=== PATIENT | female | born 1985 | race Caucasian/White ===

== ENCOUNTER 2021-06-06 17:19 | Emergency (ER) | payer BC, OTHER ==
[2021-06-06] MEDS ORDERED: predniSONE 20 MG Tab PO ONE (18:09)
[2021-06-06] MEDS ORDERED: Ketorolac 60 MG/2 ML SDV IM ONE (18:13)
[2021-06-06] MEDS ORDERED: traMADol 50 MG Tab PO ONE (18:14)
--- NOTE | 2021-06-06 18:20 | EDM.PDOC ---
ED HPI GENERAL MEDICAL PROBLEM - General Chief Complaint: Upper Extremity Injury/Pain Stated Complaint: right shoulder pain Time Seen by Provider: 06/06/21 17:45 Source of Information: Reports: Patient History Limitations: Reports: No Limitations - History of Present Illness INITIAL COMMENTS - FREE TEXT/NARRATIVE: Patient was working at [employer] when she felt sharp pain/popping sensation in right shoulder. Now has pain both anterior and posterior shoulder. Also fingers are all a bit tingly but she has had that sensation before. No weakness of limb. Has not taken any medication for this. No other acute complaints. No history of injury to that shoulder in past. Patient denies chance of and just had negative test a few days ago when restarting con trol. right shoulder Pain Score (Numeric/FACES): 7 - Related Data Allergies Allergy/AdvReac Type Severity Reaction Status Date / Time No Known Allergies Allergy Verified 08/02/19 15:26 Home Meds: Home Meds Levonorgestrel/Ethin.estradiol [Aviane] 1 tab PO DAILY 03/26/19 [History] Loratadine [Claritin] 10 mg PO DAILY 06/06/21 [History] Past Medical History HEENT History: Reports: Impaired Vision Respiratory History: Reports: Other (See Below) Other Respiratory History: seasonal allergies Gastrointestinal History: Reports: Irritable Bowel Syndrome Neurological History: Reports: Migraines Psychiatric History: Reports: Anxiety, Depression Endocrine/Metabolic History: Reports: Obesity/BMI 30+ Social & Family History - Family History Family Medical History: No Pertinent Family History - Tobacco Use Tobacco Use Status *Q: Never Tobacco User Second Hand Smoke Exposure: No - Caffeine Use Caffeine Use: Reports: Coffee - Recreational Drug Use Recreational Drug Use: No Review of Systems - Review of Systems Review Of Systems: Comprehensive ROS is negative, except as noted in HPI. ED EXAM, GENERAL - Physical Exam Exam: See Below Exam Limited By: No Limitations General Appearance: Alert, WD/WN, Other (uncomfortable in appearance) Eye Exam: Bilateral Eye: EOMI, PERRL Ears: Hearing Grossly Normal Nose: No: Nasal Deformity, Nasal Swelling, Nasal Drainage Throat/Mouth: Normal Lips, Normal Voice, No Airway Compromise Head: Atraumatic, Normocephalic Neck: Supple, Non-Tender, Full Range of Motion Respiratory/Chest: No Respiratory Distress, Chest Non-Tender Cardiovascular: Normal Peripheral Pulses Extremities: Normal Capillary Refill, Other (Diffuse tenderness around proximal biceps tendons/bicep and also tricep. No tenderness around AC joint/clavicle. Distal humerus/elbow/forearm/hand nontender. Good ROM of hand and elbow. All movement of shoulder causes discomfort for patient. No deformity/swelling/bruising noted. ). No: Joint Swelling, Increased Warmth, Mottled, Pallor, Redness Neurological: Alert, Oriented, Normal Gait, Other (Subjected sensation mild tingling in all fingers. No specific nerve distribution. ) Psychiatric: Normal Affect, Normal Mood Skin Exam: Warm, Dry, Intact, Normal Color Course - Vital Signs Last Recorded V/S: Last Vital Signs Temp 36.8 C 06/06/21 17:30 Pulse 72 06/06/21 17:30 Resp 20 06/06/21 17:30 BP 118/62 06/06/21 17:30 Pulse Ox 98 06/06/21 17:30 - Orders/Labs/Meds Orders: Active Orders 24 hr Category Date Time Status Shoulder Comp Rt [CR] Stat Exams 06/06/21 17:22 Ordered Meds: Medications Discontinued Medications Generic Name Dose Route Start Last Admin Trade Name Freq PRN Reason Stop Dose Admin Ketorolac Tromethamine 60 mg 06/06/21 18:13 06/06/21 18:18 Ketorolac 60 Mg/2 Ml Sdv IM 06/06/21 18:14 60 mg ONETIME ONE Administration Prednisone 40 mg 06/06/21 18:09 06/06/21 18:15 Prednisone 20 Mg Tab PO 06/06/21 18:10 40 mg ONETIME ONE Administration Tramadol HCl 50 mg 06/06/21 18:14 Tramadol 50 Mg Tab PO 06/06/21 18:15 ONETIME ONE - Re-Assessments/Exams Free Text/Narrative Re-Assessment/Exam: 06/06/21 19:35 Xray performed of shoulder. No acute abnormalities noted. Pending Radiology review. Suspect soft tissue injury. May need further imaging such as MRI to look into potential ligament/tendon injury. Sling provided to patient. IM Toradol. Tramadol to go from ER stock. No work rest of week. To follow up at Ortho walk-in (she uses [facility]) tomorrow or for re-eval and further planning/imaging as needed. Departure - Departure Time of Disposition: 18:30 Disposition: Home, Self-Care 01 Condition: Good Clinical Impression: Right shoulder injury Qualifiers: Encounter type: initial encounter Qualified Code(s): S49.91XA - Unspecified injury of right shoulder and upper arm, initial encounter - Discharge Information *PRESCRIPTION DRUG MONITORING PROGRAM REVIEWED*: Not Applicable *COPY OF PRESCRIPTION DRUG MONITORING REPORT IN PATIENT BIRDIE: Not Applicable Instructions: How to use a Sling, [id number], Shoulder Pain, [id number] Referrals: PCP,None [Primary Care Provider] - Forms: ED Department Discharge Additional Instructions: Take Tramadol one tab every 6 hours as needed for pain. OK to also use Tylenol. Sling for comfort/protection. Ice sore areas 10-15min every hour or two while awake. Follow up tomorrow at Ortho walk in clinic at [facility]. Have them re-evaluate you and recommend further treatment/imaging as needed. They will need to determine further work restrictions as needed. Follow up otherwise as needed if you have additional problems/concerns. Sepsis Event Note (ED) - Focused Exam Vital Signs: Vital Signs Temp Pulse Resp BP Pulse Ox 06/06/21 17:30 36.8 C 72 20 118/62 98 - My Orders Last 24 Hours: My Active Orders 06/06/21 17:22 Shoulder Comp Rt [CR] Stat - Assessment/Plan Last 24 Hours: My Active Orders 06/06/21 17:22 Shoulder Comp Rt [CR] Stat
== END 2021-06-06 18:43 | disposition home or self-care (01) ==
LOC: LL.ED 17:19
DX: S49.91XA Unspecified injury of right shoulder and upper arm, initial encounter (principal); E66.9 Obesity, unspecified; Z68.41 Body mass index [BMI] 40.0-44.9, adult; X58.XXXA Exposure to other specified factors, initial encounter
CPT/HCPCS: 73030-RT; 96372; 99283; 99283-25; J1885; J7512

== ENCOUNTER 2021-08-24 15:27 | Emergency (ER) | payer BC, OTHER ==
[2021-08-24 16:29] LABS: ANION GAP 9.5 meq/L (7-15); CHLORIDE,CL 107 mmol/L (98-107); SODIUM,NA 141 mmol/L (136-145)
--- NOTE | 2021-08-24 16:50 | EDM.PDOC ---
ED HPI GENERAL MEDICAL PROBLEM - General Chief Complaint: Syncope Stated Complaint: Syncope Time Seen by Provider: 08/24/21 15:54 Source of Information: Reports: Patient History Limitations: Reports: No Limitations - History of Present Illness INITIAL COMMENTS - FREE TEXT/NARRATIVE: Patient had syncopal episode today at home. Sudden. No prodrome. Has had syncope in past but was felt to be due to her anxiety medication. Patient has not felt well for around a week. Tired. Had a migraine. On/off nausea. Decreased appetite. No vomiting or bowel changes. Had had nasal co ngestion for several months and sometimes bloody nasal drainage. Denies fever/chills/cough/sob/sore throat. No UTI symptoms. Admits she has been eating and drinking poorly. Works at [employer]. No reported weight changes. Denies hitting head. Mild headache. No vision changes. - Related Data Allergies Allergy/AdvReac Type Severity Reaction Status Date / Time No Known Allergies Allergy Verified 08/24/21 15:29 Home Meds: Home Meds Levonorgestrel/Ethin.estradiol [Aviane] 1 tab PO DAILY 03/26/19 [History] Loratadine [Claritin] 10 mg PO DAILY 06/06/21 [History] Amoxicillin/Clavulanate K [Augmentin 875-125 MG] 1 tab PO BID #14 tablet 08/24/21 [Rx] Ondansetron [Zofran ODT] 4 mg PO Q6H PRN #8 tab.dis 08/24/21 [Rx] Past Medical History HEENT History: Reports: Impaired Vision Respiratory History: Reports: Other (See Below) Other Respiratory History: seasonal allergies Gastrointestinal History: Reports: Irritable Bowel Syndrome Neurological History: Reports: Migraines Psychiatric History: Reports: Anxiety, Depression Endocrine/Metabolic History: Reports: Obesity/BMI 30+ Social & Family History - Family History Family Medical History: No Pertinent Family History - Tobacco Use Tobacco Use Status *Q: Never Tobacco User Second Hand Smoke Exposure: No - Caffeine Use Caffeine Use: Reports: Coffee, Tea - Recreational Drug Use Recreational Drug Use: Yes Drug Use in Last 12 Months: Yes Recreational Drug Type: Reports: Marijuana/Hashish Recreational Drug Use Frequency: Weekly ED ROS GENERAL - Review of Systems Review Of Systems: Comprehensive ROS is negative, except as noted in HPI. ED EXAM, GENERAL - Physical Exam Exam: See Below Exam Limited By: No Limitations General Appearance: Alert, WD/WN, No Apparent Distress Eye Exam: Bilateral Eye: EOMI, PERRL Ears: Normal External Exam, Normal Canal, Hearing Grossly Normal Nose: No: Nasal Deformity, Nasal Swelling, Nasal Drainage Throat/Mouth: Normal Lips, Normal Voice, No Airway Compromise Head: Atraumatic, Normocephalic Neck: Normal Inspection, Supple, Non-Tender, Full Range of Motion Respiratory/Chest: No Respiratory Distress, Lungs Clear, No Accessory Muscle Use Cardiovascular: Regular Rate, Rhythm, No Murmur GI/Abdominal: Normal Bowel Sounds, Soft, Non-Tender, No Distention (Female) Exam: Deferred Rectal (Female) Exam: Deferred Back Exam: Normal Inspection Extremities: Normal Inspection, Normal Range of Motion, Non-Tender, Normal Capillary Refill Neurological: Alert, Oriented, CN II-XII Intact, Normal Cognition, Normal Gait, No Motor/Sensory Deficits Psychiatric: Normal Affect, Normal Mood Skin Exam: Warm, Dry, Intact, Normal Color Course - Vital Signs Last Recorded V/S: Last Vital Signs Temp 37.2 C 08/24/21 15:30 Pulse 58 L 08/24/21 15:30 Resp 18 08/24/21 15:30 BP 155/91 H 08/24/21 15:30 Pulse Ox 99 08/24/21 15:30 Orthostatic Blood Pressure [ 121/88 Standing] Orthostatic Blood Pressure [ 116/79 Sitting] Orthostatic Blood Pressure [ 122/75 Supine] - Orders/Labs/Meds Orders: Active Orders 24 hr Category Date Time Status Orthostatic Vital Signs [RC] ASDIRECTED Care 08/24/21 15:47 Active Labs: Laboratory Tests 08/24/21 08/24/21 08/24/21 Range/Units 15:50 15:59 15:59 WBC 5.8 (4.0-10.2) K/uL RBC 4.05 (3.77-5.09) M/uL Hgb 13.1 (11.7-15.5) g/dL Hct 39.3 (34.0-46.0) % MCV 97.0 (84.0-98.0) fL MCH 32.3 (28.2-33.3) pg MCHC 33.3 (31.7-36.0) g/dL RDW 12.5 (11.2-14.1) % Plt Count 249 (150-350) K/uL Neut % (Auto) 64.7 (45.0-80.0) % Lymph % (Auto) 27.1 (10.0-50.0) % [facility] % (Auto) 5.9 (2.0-14.0) % Eos % (Auto) 2.1 (0.0-5.0) % Baso % (Auto) 0.2 (0.0-2.0) % Neut # (Auto) 3.76 (1.40-7.00) K/uL Lymph # (Auto) 1.57 (0.50-3.50) K/uL [facility] # (Auto) 0.34 (0.00-1.00) K/uL Eos # (Auto) 0.12 (0.00-0.50) K/uL Baso # (Auto) 0.01 (0.00-0.20) K/uL Sodium 141 (136-145) mmol/L Potassium 4.1 (3.5-5.1) mmol/L Chloride 107 (98-107) mmol/L Carbon Dioxide 24.5 (21.0-32.0) mmol/L Anion Gap 9.5 (7-15) meq/L BUN 8 (7-18) mg/dL Creatinine 0.66 (0.51-1.17) mg/dL Est Cr Clr Drug Dosing TNP Estimated GFR (MDRD) > 60 mL/min Glucose 83 (70-99) mg/dL Calcium 8.4 L (8.5-10.1) mg/dL Magnesium 2.0 (1.8-2.4) mg/dL Total Bilirubin 0.7 (0.2-1.0) mg/dL AST 19 (15-37) U/L ALT 18 (12-78) U/L Alkaline Phosphatase 35 L (46-116) IU/L Total Protein 7.3 (6.4-8.2) g/dL Albumin 3.5 (3.4-5.0) g/dL HCG, Qual Negative (NEGATIVE) Specimen Type Urine Color Urine Appearance Urine pH (5.0-9.0) Ur Specific [place] (1.005-1.030) Urine Protein (NEGATIVE) mg/dL Urine Glucose (UA) (NEGATIVE) mg/dL Urine Ketones (NEGATIVE) mg/dL Urine Occult Blood (NEGATIVE) Urine Nitrite (NEGATIVE) Urine Bilirubin (NEGATIVE) Urine Urobilinogen (0.2-1.0) E.U./dL Ur Leukocyte Esterase (NEGATIVE) Urine RBC /HPF Urine WBC /HPF Ur Epithelial Cells /LPF Urine Bacteria (NONE TO FEW) /HPF SARS-CoV-2 Ag (Rapid) (NEGATIVE) 08/24/21 08/24/21 Range/Units 16:50 16:50 WBC (4.0-10.2) K/uL RBC (3.77-5.09) M/uL Hgb (11.7-15.5) g/dL Hct (34.0-46.0) % MCV (84.0-98.0) fL MCH (28.2-33.3) pg MCHC (31.7-36.0) g/dL RDW (11.2-14.1) % Plt Count (150-350) K/uL Neut % (Auto) (45.0-80.0) % Lymph % (Auto) (10.0-50.0) % [facility] % (Auto) (2.0-14.0) % Eos % (Auto) (0.0-5.0) % Baso % (Auto) (0.0-2.0) % Neut # (Auto) (1.40-7.00) K/uL Lymph # (Auto) (0.50-3.50) K/uL [facility] # (Auto) (0.00-1.00) K/uL Eos # (Auto) (0.00-0.50) K/uL Baso # (Auto) (0.00-0.20) K/uL Sodium (136-145) mmol/L Potassium (3.5-5.1) mmol/L Chloride (98-107) mmol/L Carbon Dioxide (21.0-32.0) mmol/L Anion Gap (7-15) meq/L BUN (7-18) mg/dL Creatinine (0.51-1.17) mg/dL Est Cr Clr Drug Dosing Estimated GFR (MDRD) mL/min Glucose (70-99) mg/dL Calcium (8.5-10.1) mg/dL Magnesium (1.8-2.4) mg/dL Total Bilirubin (0.2-1.0) mg/dL AST (15-37) U/L ALT (12-78) U/L Alkaline Phosphatase (46-116) IU/L Total Protein (6.4-8.2) g/dL Albumin (3.4-5.0) g/dL HCG, Qual (NEGATIVE) Specimen Type Urinvoid Urine Color Yellow Urine Appearance Clear Urine pH 5.5 (5.0-9.0) Ur Specific [place] >= 1.030 (1.005-1.030) Urine Protein Negative (NEGATIVE) mg/dL Urine Glucose (UA) Negative (NEGATIVE) mg/dL Urine Ketones Negative (NEGATIVE) mg/dL Urine Occult Blood Moderate H (NEGATIVE) Urine Nitrite Negative (NEGATIVE) Urine Bilirubin Negative (NEGATIVE) Urine Urobilinogen 0.2 (0.2-1.0) E.U./dL Ur Leukocyte Esterase Negative (NEGATIVE) Urine RBC 0-5 /HPF Urine WBC 0-5 /HPF Ur Epithelial Cells Few /LPF Urine Bacteria Few (NONE TO FEW) /HPF SARS-CoV-2 Ag (Rapid) Negative (NEGATIVE) - Re-Assessments/Exams Free Text/Narrative Re-Assessment/Exam: 08/24/21 17:23 As noted in HPI patient has had syncopal episodes in past. Baseline labs requested. Unremarkable orthostatic measurements. Negative HCG/Covid. CBC/Chem/UA overall unremarkable. UA had high specific gravity. Vital signs stable. Patient ambulating well. Suspect viral illness/mild dehydration/poor appetite may have contributed to episode. Given sinus complaints that have been present for months, will cover patient with Augmentin. Recommend follow up with PCP next week if symptoms do not start to improve by Saturday/Saturday. Precautions reviewed. To return to ER over weekend if she has acute worsening symptoms. Work slip given for [employer] for rest of week. Departure - Departure Time of Disposition: 16:45 Disposition: Home, Self-Care 01 Condition: Good Clinical Impression: Syncope Qualifiers: Syncope type: vasovagal syncope Qualified Code(s): R55 - Syncope and collapse Sinusitis Qualifiers: Sinusitis location: other Chronicity: acute Recurrence: non-recurrent Qualified Code(s): J01.80 - Other acute sinusitis - Discharge Information *PRESCRIPTION DRUG MONITORING PROGRAM REVIEWED*: Not Applicable *COPY OF PRESCRIPTION DRUG MONITORING REPORT IN PATIENT BIRDIE: Not Applicable Prescriptions: Amoxicillin/Clavulanate K [Augmentin 875-125 MG] 1 tab PO BID #14 tablet Ondansetron [Zofran ODT] 4 mg PO Q6H PRN #8 tab.dis PRN Reason: Nausea Instructions: Sinusitis, Adult, [id number], Syncope, [id number] Referrals: Lalo Miller PA-C [Primary Care Provider] - Forms: ED Department Discharge Additional Instructions: Make sure you eat/drink properly! See how you feel over the next few days. If no overall improvement please see your clinic provider next week. Follow up over weekend as needed for any acute worsening symptoms. Sepsis Event Note (ED) - Evaluation Sepsis Screening Result: No Definite Risk - Focused Exam Vital Signs: Vital Signs Temp Pulse Resp BP Pulse Ox 08/24/21 15:30 37.2 C 58 L 18 155/91 H 99 - My Orders Last 24 Hours: My Active Orders 08/24/21 15:47 Orthostatic Vital Signs [RC] ASDIRECTED - Assessment/Plan Last 24 Hours: My Active Orders 08/24/21 15:47 Orthostatic Vital Signs [RC] ASDIRECTED
== END 2021-08-24 17:00 | disposition home or self-care (01) ==
LOC: LL.ED 15:27
DX: R55 Syncope and collapse (principal); J01.80 Other acute sinusitis; E66.9 Obesity, unspecified; Z68.30 Body mass index [BMI] 30.0-30.9, adult; Z20.822 Contact with and (suspected) exposure to COVID-19
CPT/HCPCS: 36415; 80053; 81001; 83735; 84703; 85025; 87426; 99283; 99284

== ENCOUNTER 2022-05-22 15:03 | Emergency (ER) | payer BC ==
[2022-05-22 16:14] LABS: ANION GAP 8.4 meq/L (7-15)
[2022-05-22] MEDS: Ondansetron 4 MG Tab.DIS PO ONE (16:33)
[2022-05-22] MEDS ORDERED: Meclizine 25 MG Tab PO ONE (17:18)
== END 2022-05-22 17:33 | disposition home or self-care (01) ==
LOC: LL.ED 15:03
DX: R42 Dizziness and giddiness (principal); R11.0 Nausea; E66.9 Obesity, unspecified; Z68.24 Body mass index [BMI] 24.0-24.9, adult
CPT/HCPCS: 36415; 80053; 81003; 81025; 83735; 85025; 99284; A9270-GY

== ENCOUNTER 2025-02-18 04:19 | Emergency (ER) | payer OTHER, BC ==
[2025-02-18] MEDS: Ketorolac 10 MG Tab PO ONE (05:09)
== END 2025-02-18 05:20 | disposition home or self-care (01) ==
LOC: LL.ED 04:19
DX: S93.401A Sprain of unspecified ligament of right ankle, initial encounter (principal); Z91.048 Other nonmedicinal substance allergy status; Z91.018 Allergy to other foods; Z79.899 Other long term (current) drug therapy; X50.0XXA Overexertion from strenuous movement or load, initial encounter; Y93.89 Activity, other specified
CPT/HCPCS: 73610-RT; 99283; A9270-GY

== ENCOUNTER 2025-04-21 04:30 | Emergency (ER) | payer BC, OTHER ==
[2025-04-21 05:30] LABS: BASOPHILS ABSOLUTE AUTO 0.02 K/uL (0.00-0.20); BASOPHILS PERCENT AUTO 0.3 % (0.0-2.0); EOSINOPHILS ABSOLUTE AUTO 0.15 K/uL (0.00-0.50); EOSINOPHILS PERCENT AUTO 2.2 % (0.0-5.0); IMMATURE GRAN ABSOLUTE AUTO 0.01 10^3/uL (0.00-0.04); IMMATURE GRAN PERCENT AUTO 0.1 % (0.0-0.4); LYMPHOCYTES ABSOLUTE AUTO 1.91 K/uL (0.50-3.50); LYMPHOCYTES PERCENT AUTO 27.8 % (10.0-50.0); MONOCYTES ABSOLUTE AUTO 0.48 K/uL (0.00-1.00); MONOCYTES PERCENT AUTO 7.0 % (2.0-14.0); NEUTROPHILS ABSOLUTE AUTO 4.30 K/uL (1.40-7.00); NEUTROPHILS PERCENT AUTO 62.6 % (45.0-80.0); PLATELET COUNT,PLT 238 K/uL (150-350); RED BLOOD CELL COUNT 3.95 M/uL (3.77-5.09); RED CELL DISTRIBUTION WIDTH 12.7 % (11.2-14.1); WHITE BLOOD CELL COUNT,WBC 6.9 K/uL (4.0-10.2)
[2025-04-21 05:48] LABS: AMPHETAMINES SCREEN, URINE NEGATIVE (NEGATIVE); COCAINE METABOLITES,URINE NEGATIVE (NEGATIVE); EDDP,URINE SCREEN NEGATIVE (NEGATIVE); METHAMPHETAMINES SCREEN, URINE NEGATIVE (NEGATIVE); TCA SCREEN,URINE NEGATIVE (NEGATIVE); THC SCREEN,URINE 50 NG/ML NEGATIVE (NEGATIVE)
[2025-04-21 05:52] LABS: APPEARANCE,URINE CLEAR; GLUCOSE,URINE NEGATIVE (NEGATIVE); OCCULT BLOOD,URINE NEGATIVE (NEGATIVE)
[2025-04-21 05:54] LABS: BUPRENORPHINE SCREEN,URINE NEGATIVE (NEGATIVE); OXYCODONE SCREEN,URINE NEGATIVE (NEGATIVE)
[2025-04-21 05:58] LABS: ALANINE AMINOTRANSFERASE,ALT 11 U/L (12-78); ASPARTATE AMNIOTRANSFERASE,AST 13 U/L (15-37); BILIRUBIN TOTAL 0.8 mg/dL (0.2-1.0); BLOOD UREA NITROGEN,BUN 10 mg/dL (7-18); CARBON DIOXIDE,CO2 27.0 mmol/L (21.0-32.0); CHLORIDE,CL 104 mmol/L (98-107); CREATININE 0.66 mg/dL (0.51-1.17); GLUCOSE RANDOM 105 mg/dL (70-99); POTASSIUM,K 4.2 mmol/L (3.5-5.1); PROTEIN TOTAL,TP 7.2 g/dL (6.4-8.2); SODIUM,NA 138 mmol/L (136-145)
[2025-04-21 06:05] LABS: ESTIMATED GFR 116 mL/min (>=60)
[2025-04-21 06:06] LABS: ETHANOL BLOOD MEDICAL 0.000 g/dL (0.000-0.080)
[2025-04-21 06:47] LABS: SQUAMOUS EPITHELIAL CELLS,UR FEW /HPF (NOT SEEN)
== END 2025-04-21 09:39 ==
LOC: LL.ED 04:30
DX: F32.A Depression, unspecified (principal); Z79.899 Other long term (current) drug therapy; Z88.8 Allergy status to other drugs, medicaments and biological substances; Z91.018 Allergy to other foods
CPT/HCPCS: 36415; 80053; 80143; 80179; 80305-QW; 80307; 81001; 81025; 85025; 87086; 99285; A9270-GY